=== PATIENT | male | born 1940 | race Caucasian/White ===

== ENCOUNTER 2019-03-18 08:14 | Outpatient (CLI) | payer MEDICARE, BC | END 2019-03-18 23:59 | disposition home or self-care (01) | LOC: CARD DIAG 08:14 | PROVIDERS: ATTEND Internal Medicine Cardiovascular Disease | DX: I08.8 Other rheumatic multiple valve diseases (principal); I10 Essential (primary) hypertension; Z95.0 Presence of cardiac pacemaker; Z95.5 Presence of coronary angioplasty implant and graft | CPT/HCPCS: 93306 ==